=== PATIENT | female | born 1995 | race Caucasian/White ===

== ENCOUNTER → 2021-03-08 | Outpatient (CLI) | payer OTHER ==
[~2021-03-08] MED LIST: LEXAPRO20 MG PO; PRENATAL VITAM1 EAC5 PO; VALTREX500 MG PO
== END ==
LOC: KOH-I 03-05 13:30
DX: E04.1 Nontoxic single thyroid nodule (principal)
CPT/HCPCS: 76536

== ENCOUNTER 2021-03-18 18:24 | Emergency (ER) | payer OTHER ==
[2021-03-18 18:56] LABS: HEMOGLOBIN 13.7 gm/dl (12.3-15.3); RED BLOOD COUNT 4.64 M/UL (4.00-5.10); WHITE BLOOD COUNT 8.4 K/UL (4.5-11.0)
[2021-03-18 19:12] LABS: BUN/CREATININE RATIO 13 (0-10)
== END 2021-03-18 20:00 | disposition home or self-care (01) ==
LOC: ER1 18:24
PROVIDERS: Family Medicine
DX: T68.XXXA Hypothermia, initial encounter (principal)
CPT/HCPCS: 80053; 80307; 84702; 85025; 99283; G0480